=== PATIENT | female | born 1950 | race Asian ===

== ENCOUNTER 2018-02-08 11:20 | Emergency (ER) | payer MEDICARE, OTHER, SELFPAY ==
[2018-02-08 11:28] VITALS: BP 160/86; PULSE 84; RESP 16; TEMP 36.2; O2SAT 98; BMI 23.8
--- NOTE | 2018-02-08 11:31 | DI.RAD.S_ITS ---
PROCEDURE: XR SHOULDER LT MIN 2V INDICATIONS: fell, now with left shoulder with limited range of motion. TECHNIQUE: 3 views of the shoulder were acquired. COMPARISON: None. FINDINGS: Bones: No fractures or dislocations. No suspicious bony lesions. Visualized ribs appear intact. Soft tissues: No suspicious soft tissue calcifications. IMPRESSION: No trauma found. 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 This could obscure visualization of a nondisplaced fracture. Dictated by: Jerry Leahy M.D. on 02/08/2018 at 11:59 Approved by: Jerry Leahy M.D. on 02/08/2018 at 12:00
--- NOTE | 2018-02-08 12:04 | ED.UPPEXIN ---
HPI - Extremity Injury (Upper) <[facility] - Last Filed: 02/08/18 12:50> General Chief Complaint: Extremity Injury, Upper Stated Complaint: fell, left shoulder hurts Time Seen by Provider: 02/08/18 12:10 Source: patient and family Mode of arrival: ambulatory Limitations: no limitations History of Present Illness HPI narrative: Patient is a 67-year-old female nonsmoker who presents with her with a chief complaint of acute left shoulder pain. She states she was stepping down a step ladder 2 days ago and fell, injuring her left shoulder. She has taken 2 doses of ibuprofen since the incident. She denies any numbness or tingling in her left hand. She does complain of decreased range of motion. She denies any previous injury to her left shoulder. She has not taken anything for pain today. She is worried about fracture. She denies any bruising or laceration. She denies any hitting of her head, loss of consciousness, neck pain or back pain. She does not take any blood thinners. Related Data Previous Rx's Medication Instructions Recorded naproxen 500 mg PO BID PRN #20 tab 02/08/18 Allergies Allergy/AdvReac Type Severity Reaction Status Date / Time No Known Drug Allergies Allergy Verified 02/08/18 11:28 Review of Systems <[facility] - Last Filed: 02/08/18 12:50> Review of Systems GENERAL: Denies chills, fatigue, malaise, fever, sweats. HEENT: Denies sinus pain, ear pain, sore throat, difficulty swallowing, dizziness. RESPIRATORY: Denies dyspnea, cough, wheezing, hemoptysis, sputum. CARDIOVASCULAR: Denies chest pain, palpitations, orthopnea, edema, GASTROINTESTINAL: Denies nausea, vomiting, abdominal pain, diarrhea, constipation, melena. : Denies dysuria, frequency, incontinence, hematuria, urinary retention. MUSCULOSKELETAL: See HPI SKIN: See HPI NEUROLOGIC: Denies weakness, headache, numbness, change in speech, confusion, seizures, incoordination. PSYCHIATRIC: No concerning psychosocial issues. 12 point review of systems is negative except for those stated above Exam <[facility] - Last Filed: 02/08/18 12:50> Narrative Exam Narrative: GENERAL: This is a well-nourished, well-developed patient, sitting on stretcher in no acute distress HEAD: Atraumatic. Normocephalic. No temporal or scalp tenderness. EYES: Pupils equal round and reactive. Extraocular motions intact. No scleral icterus. No injection or drainage. ENT: Nose without bleeding, purulent drainage or septal hematoma. Throat without erythema, tonsillar hypertrophy or exudate. Uvula midline. Airway patent. NECK: Trachea midline. No JVD or lymphadenopathy. Supple, nontender, no meningeal signs. CARDIOVASCULAR: Regular rate and rhythm without murmurs, gallops, or rubs. RESPIRATORY: Clear to auscultation. Breath sounds equal bilaterally. No wheezes, rales, or rhonchi. GASTROINTESTINAL: Abdomen soft, non-tender, nondistended. No hepato-splenomegaly, or palpable masses. No guarding. EXTREMITIES: Generalized pain to palpation left shoulder. Positive pulse left radial. Patient is able to extend left arm, unable to abduct or flex left arm. Strength is equal bilateral hands. BACK: Nontender without deformity or crepitance. No flank tenderness. No pain to C-spine or spinal palpation. NEURO: AOx3. SKIN: No rash, erythema, ecchymosis laceration or abrasion noted left shoulder.. Initial Vital Signs Initial Vital Signs: Vital Signs Temperature 97.2 F L 02/08/18 11:28 Pulse Rate 84 02/08/18 11:28 Respiratory Rate 16 02/08/18 11:28 Blood Pressure 160/86 H 02/08/18 11:28 Pulse Oximetry 98 02/08/18 11:28 <Juan Ramon Perez DO - Last Filed: 02/08/18 12:55> Initial Vital Signs Initial Vital Signs: Vital Signs Temperature 97.2 F L 02/08/18 11:28 Pulse Rate 84 02/08/18 11:28 Respiratory Rate 16 02/08/18 11:28 Blood Pressure 160/86 H 02/08/18 11:28 Pulse Oximetry 98 02/08/18 11:28 Procedures <JESSICA Rodríguez - Last Filed: 02/08/18 12:50> Orthopedic Splinting/Casting Injury #1: Side: left Upper Extremity Injury Location: shoulder Upper Extremity Immobilizer: sling/shoulder immobilizer Course <JESSICA Rodríguez - Last Filed: 02/08/18 12:50> Orders Ordered: ED Orders 02/08/18 11:31 XR shoulder LT min 2V Stat Discontinued Medications Ketorolac Tromethamine (Toradol) 30 mg IM NOW ONE Stop: 02/08/18 12:20 Last Admin: 02/08/18 12:29 Dose: 30 mg Vital Signs - 8 hr 02/08/18 11:28 Temperature 97.2 F L Pulse Rate 84 Respiratory Rate 16 Blood Pressure 160/86 H Pulse Oximetry 98 <Juan Ramon Perez DO - Last Filed: 02/08/18 12:55> Orders Ordered: ED Orders 02/08/18 11:31 XR shoulder LT min 2V Stat Discontinued Medications Ketorolac Tromethamine (Toradol) 30 mg IM NOW ONE Stop: 02/08/18 12:20 Last Admin: 02/08/18 12:29 Dose: 30 mg Vital Signs - 8 hr 02/08/18 11:28 Temperature 97.2 F L Pulse Rate 84 Respiratory Rate 16 Blood Pressure 160/86 H Pulse Oximetry 98 MDM - Extremity Injury (Upper) <JESSICA Rodríguez - Last Filed: 02/08/18 12:50> Imaging Data shoulder xray : Attestation: I personally reviewed and interpreted this imaging study as follows: My impression: Slight AC separation Radiologist's impression: [place] [address] XRay Report Signed Patient: Sonal Quevedo MR#: [id number] : 1950 Acct:[id number] Age/Sex: 67 / F Date of Service: 02/08/18 Loc: ED Accession Number: [id number] Procedure: XR shoulder LT min 2V Ordering Provider: Juan Ramon Perez D.O. PROCEDURE: XR SHOULDER LT MIN 2V INDICATIONS: fell, now with left shoulder with limited range of motion. TECHNIQUE: 3 views of the shoulder were acquired. COMPARISON: None. FINDINGS: Bones: No fractures or dislocations. No suspicious bony lesions. Visualized ribs appear intact. Soft tissues: No suspicious soft tissue calcifications. IMPRESSION: No trauma found. 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 This could obscure visualization of a nondisplaced fracture. Dictated by: Jerry Leahy M.D. on 02/08/2018 at 11:59 Approved by: Jerry Leahy M.D. on 02/08/2018 at 12:00 [facility] Narrative Medical decision making narrative: Patient is a 59-year-old female who presents 2 days after a fall with left shoulder pain. X-rays negative. She was neurovascularly intact and hemodynamically stable. She denies hitting her head neck pain or back pain. X-rays concerning for slight AC separation. She was placed in a sling, given Toradol. I discussed at length rest ice compression elevation as well as use of NSAIDs as well as follow up with her primary care provider. Discussed not taking Aleve until tonight given her Toradol in the emergency department. Discussed possibility of soft tissue injury, he separation or rotator cuff injury. Discussed at length follow up with primary care provider in a few days. Other than decreased range of motion, patient's exam is overall benign. Patient and have no questions or concerns upon discharge. Discharge Plan Departure Patient Disposition: Home Clinical Impression: Acute pain of left shoulder, AC separation Discharge Date/Time: 02/08/18 12:49 Interventions: ED Discharge Assessment Last Done: 02/08/18 12:49 Instructions: How to Use a Sling, How To Perform RICE (Rest, Ice, Compress, Elevate), DI for Shoulder Pain, DI for AC Joint Separation Activity Restrictions/Additional Instructions: Your shoulder x-ray shows no fracture today. However I am concerned about soft tissue injury such as an AC joint separation. Please use rest ice compression elevation. Please use the sling. Please come back to the emergency department if you have any acute concerns including numbness or tingling of the hand. Please follow-up with her primary care provider in a few days. Please start taking the naproxen this evening. Do not take any NSAIDs for 6-8 hours after Toradol. Follow up with primary care provider in a few days if worsening or no improvement. Prescriptions: New naproxen 500 mg tablet 500 mg PO BID PRN (Reason: pain) Qty: 20 RF: 0 Referrals: [facility] [Provider Group] [facility] [Provider Group] <Juan Ramon Perez DO - Last Filed: 02/08/18 12:55> [facility] Attending Concepcion Attestation: I was available for consultation during this patient's emergency department encounter
[2018-02-08] MEDS: KETOROLAC 60 MG/2 ML VIAL 30 MG IM (12:29)
== END 2018-02-08 12:49 | disposition home or self-care (01) ==
PROVIDERS: Emergency Provider Nurse Practitioner Family
DX: M25.512 Pain in left shoulder (principal)
CPT/HCPCS: 73030; 96372; 99282; 99283; J1885